=== PATIENT | female | born 1985 | race Hispanic/Latino ===

== ENCOUNTER 2018-02-14 17:57 | Emergency (ER) | payer OTHER ==
[~2018-02-14] VITALS: Ht 165.1 cm; Wt 73.1 kg
[2018-02-14] MEDS ORDERED: IBUPROFEN 200 MG TAB PO STA (18:00)
[2018-02-14] MEDS ORDERED: ACETAMINOPHEN 325 MG TAB PO ONE (18:00)
[2018-02-14] MEDS ORDERED: ONDANSETRON HCL 4 MG ORAL DISINTEGRATING TAB PO ONE (18:00)
[2018-02-14 18:52] VITALS: BP 100/70
== END 2018-02-14 18:58 | disposition home or self-care (01) ==
LOC: FSED 17:57
DX: R50.9 Fever, unspecified (principal); J02.9 Acute pharyngitis, unspecified
CPT/HCPCS: 81003; 83518; 87400; 99282